=== PATIENT | female | born 1990 ===

== ENCOUNTER 2021-02-04 15:57 | Emergency (ER) | payer MEDICAID, OTHER ==
[~2021-02-04] VITALS: Ht 160 cm; Wt 86.2 kg
[2021-02-04 20:39] VITALS: BP 153/69
== END 2021-02-04 22:40 | disposition home or self-care (01) ==
LOC: ER 15:57 → EDBD 15:57 → ER 22:40
DX: M79.10 Myalgia, unspecified site (principal); R51.9 Headache, unspecified; M54.2 Cervicalgia; R07.89 Other chest pain; V49.9XXA Car occupant (driver) (passenger) injured in unspecified traffic accident, initial encounter; Y93.89 Activity, other specified; Y92.410 Unspecified street and highway as the place of occurrence of the external cause; Y99.8 Other external cause status
CPT/HCPCS: 70450; 71045; 72125; 72170